=== PATIENT | female | born 1980 | race Caucasian/White ===

== ENCOUNTER 2017-09-06 05:37 | Inpatient (IN) ==
[2017-09-06] MEDS ORDERED: Ringers Solution, Lactated 1,000 ML ONE ×2 (06:03→08:52)
[2017-09-06] MEDS ORDERED: Naloxone 0.4 MG/ML INJ IVP PRN (06:13)
[2017-09-06] MEDS ORDERED: Metoclopramide 10 MG/2 ML VIAL IVP PRN ×2 (06:13→14:18)
[2017-09-06] MEDS ORDERED: Ondansetron 4 MG/2 ML VIAL IVP PRN ×2 (06:13→14:18)
[2017-09-06] MEDS ORDERED: Famotidine 20 MG/2 ML VIAL IVP PRN (06:13)
[2017-09-06] MEDS ORDERED: Ringers Solution, Lactated 1,000 ML IVC SCH (06:15)
[2017-09-06 06:30] LABS: Basophils # 0.1 K/mcL (0.0-0.2); Basophils % 0.5 %; Eosinophils # 0.2 K/mcL (0.0-0.6); Eosinophils % 1.9 %; Hematocrit 36.9 % (35.3-44.9); Hemoglobin 12.2 g/dL (11.5-15.4); Immature Granulocytes % 0.8 % (0-4); Lymphocytes # 1.4 K/mcL (0.6-4.6); Lymphocytes % 13.1 %; Mean Corpuscular HGB Conc 33.1 g/dL (31.6-35.5); Mean Corpuscular Hemoglobin 28.6 pg (28.0-33.3); Mean Corpuscular Volume 86.6 fL (83.0-100.0); Monocytes # 0.6 K/mcL (0.0-1.3); Monocytes % 5.7 %; Neutrophils # 8.5 K/mcL (1.6-8.9); Nucleated Red Blood Cells 0.2 /100 WBC (0); Platelet Count 268 K/mcL (140-400); Red Blood Count 4.26 M/mcL (3.82-4.97); Red Cell Distribution Width 13.3 % (11.5-14.5)
--- NOTE | 2017-09-06 06:35 | Anesthesia Evaluation PreOp ---
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 spoke with patient about this for 15min.), Past Anesthesia Alcohol Use: none Drug use: none Medications and Allergies [facility] Gummy Vitamins 1 PO DAILY 04/23/17 [History] 3 Allergy/AdvReac Type Severity Reaction Status Date / Time No Known Allergies Allergy Verified 04/23/17 18:18 Anesthesia Results - Labs 09/06/17 05:55 Anesthesia Exam - HEENT Pupil (Motor): Pupils equal Mallampati: III Teeth: Normal (upper front 2 has been repair.) Oral Opening: Greater than 3 - AUTO BODY REPAIRER LOC: Oriented AUTO BODY REPAIRER Motor: Normal RUE, Normal LUE, Normal RLE, Normal LLE, Normal Face AUTO BODY REPAIRER Sensory: Normal: RUE, LUE, RLE, LLE, Face - Cardiac Rhythm: Regular Murmur: None - Pulmonary Breath Sounds: bilateral Clear Respiratory Effort: Symmetrical Anesthesia Assess/Plan ASA Score: 2 Modified Jay Scale for Level of Consciousness: Cooperative, oriented, and tranquil Anesthetic Plan: General, Regional Monitoring Plan: Standard Monitors Recovery Plan: PACU
[2017-09-06 06:37] LABS: Amphetamine Screen,Urine Negative ng/mL (Cutoff=1000); Barbiturate Screen,Urine Negative ng/mL (Cutoff=200); Benzodiazepines Screen,Urine Negative ng/mL (Cutoff=200); Cannabinoid Screen,Urine Negative ng/mL (Cutoff = 50); Cocaine Screen,Urine Negative ng/mL (Cutoff= 300); Opiate Screen,Urine Negative ng/mL (Cutoff=300); Phencyclidine Screen,Urine Negative ng/mL (Cutoff=25)
[2017-09-06] MEDS ORDERED: *HR* OxyCODONE Immed Rel 5 MG TABLET PO PRN ×2 (06:39→09:17)
[2017-09-06] MEDS ORDERED: Ketorolac 30 MG/ML VIAL IVP PRN (06:39)
[2017-09-06] MEDS ORDERED: MORPHINE SUL Oral CONC 10 MG/0.5 ML ORAL.SYG SL PRN (06:39)
[2017-09-06] MEDS ORDERED: Acetaminophen IV 1,000 MG/100 ML INFUS..BTL IVPB ONE (06:39)
[2017-09-06] MEDS ORDERED: *HR* Labetalol 20 MG/4 ML SYRINGE IVP PRN (06:39)
[2017-09-06] MEDS ORDERED: *HR* Promethazine 25 MG/ML VIAL IVP PRN (06:39)
[2017-09-06] MEDS ORDERED: Morphine Sulfate/PF 5mg/10mL Vial ONE (07:17)
[2017-09-06] MEDS ORDERED: *HR* FentaNYL (PF) 100 MCG/2 ML VIAL ONE ×3 (07:17→09:11)
[2017-09-06] MEDS ORDERED: *HR* Oxytocin 10 UNIT/ML VIAL IM ONE ×2 (07:18→08:52)
[2017-09-06] MEDS ORDERED: cefOXitin 2,000 MG in 0.9 % Sodium Chloride Mini Bag 100 ML IVPB ONE (07:25)
[2017-09-06] MEDS ORDERED: MetroNIDAZOLE 500 MG/100 ML 500 MG/100 ML BAG IVPB ONE (07:25)
--- NOTE | 2017-09-06 07:35 | OB/GYN History & Physical ---
Date of Encounter: 09/06/17 Time of Encounter: 07:32 Assessment and Plan (1) Previous delivery affecting Current visit: Yes Status: Acute The patient has signed consent to proceed with a repeat (2) 39 weeks gestation of Current visit: Yes Status: Acute The patient has received care and a maternal- medicine consult during her (3) Advanced maternal age during in third trimester Current visit: Yes Status: Acute The patient has had a level II ultrasound and declined any invasive testing during (4) Metastatic melanoma Current visit: No Status: Acute There is a planned CT scan following delivery for further evaluation of the status of her cancer History of Present Illness Chief complaint: Repeat section HPI: Ms. Tran is a 37 year old female with LMP of 12/06/16 with EDC of currently at 39 weeks estimated gestational age who presents to labor and delivery for a repeat . The patient has had 3 previous C-sections. Her has been complicated by her obstetrical history, advanced maternal age, personal history of metastatic melanoma, excessive weight gain during and being positive for group B strep. Her blood type is A+, she is rubella immune and varicella immune. She reports an active fetus, denies any vaginal bleeding, loss of fluid or contractions. She is requesting a repeat and declines a tubal ligation. Past Med Surg Social Fam HX - Past Medical History Source: patient, old records reviewed Medical history: cancer Psychiatric history: no psych history - Past Surgical History Surgical History: , other (Malignant melanoma excision with axillary dissection, 2009, 2012 and 2014) - Social History Smoking Status: Former smoker Smokeless Tobacco Status: No Alcohol use: none Drug use: none - Family History Mother Adopted: No Living Status: Still Living Hx Family Cardiac Disorders: No Hx Family Respiratory Disorders: No Hx Family Cancer: No Hx Family GI Disorders: No Hx Family Genitourinary Disorders: No Hx Family Endocrine Disorder: No Hx Family Musculoskeletal Disorders: No Hx Family Neuromuscular Disorders: No Hx Family Neurologic Disorders: No Hx Family HEENT Disorders: No Hx Family Autoimmune Disorders: No Hx Family Reproductive Disorders: No Hx Family Psychosocial Disorders: No Hx Family Medical Disorders: No Obstetrical History - Pregnancies : 5 Para: 3 Term: 3 Ab's: 1 Livin Medications and Allergies [facility] Gummy Vitamins 1 PO DAILY 04/23/17 [History] 3 Allergy/AdvReac Type Severity Reaction Status Date / Time No Known Allergies Allergy Verified 04/23/17 18:18 Review of System OB All systems PM: reviewed and no additional remarkable complaints except as stated - Constitutional Constitutional ROS IM: fatigue, weight gain - Cardiovascular Cardiovascular: pedal edema Exam - Vital Signs Vital signs: Afebrile, vital signs stable - Constitutional Constitutional: well developed, well nourished, no acute distress, average body habitus - HEENT HEENT: Normocephaly, Mucus Membranes Moist - Neck Neck exam: supple, trachea midline - Lungs Respiratory exam: CTAB - Cardiovascular Cardiovascular exam: RRR - Abdomen Abdomen: Present: bowel sounds normal, gravid, non tender - Extremities Extremities exam: pedal edema, warm Deep Tendon Reflex Grade: 2+ Normal - Vulva Vulva: bilateral: normal - Vagina Vagina: Present: normal moisture - Anus/Rectum Anus/Rectum: Present: normal perianal skin Results Result Diagrams: 09/06/17 05:55 Abnormal lab results Nucleated RBCs/100 WBC 0.2 /100 WBC (0) H 09/06/17 05:55 All other labs normal. - VTE Documentation of Mechanical Device: Intermittent pneumatic compression device
--- NOTE | 2017-09-06 08:19 | Anesthesia Procedures ---
Date of Encounter: 09/06/17 Time of Encounter: 08:17 Procedures: Anesthesia - Epidural/Spinal Patient ID/Chart reviewed: Yes Patient examined: Yes OB Eval: Gestational age: 40 Consent Obtained: Yes Supplemental Oxygen: Nasal Cannula Supplemental Oxygen Rate (L/min): 3 Site Prep: Aseptic Technique, Sterile prep and drape, 0.5% Chlorhexidine/Alcohol Patient position: upright Local Anesthetic: Lidocaine 1% Amount of Local Anesthetic used: 5 Interspace Used: L2-L3 Loss of Resistance (HAMLET): No Blood: No CSF: Yes Paresthesia: No Spinal Needle Gauge: 22 Spinal Dose: marcaine 12 mg fentanyl 10 mcg morphine 0.25 Procedure: aseptic, attempt x2 w 25 ga, converted to 22ga, csf x 4 quads and clear, tolerated well, VSS Vitals + FHT's: 35/88 110 16 fht 134
[2017-09-06] MEDS ORDERED: Ondansetron 4 MG/2 ML VIAL ONE (08:47)
[2017-09-06] MEDS ORDERED: Ketorolac 30 MG/ML VIAL ONE (09:21)
--- NOTE | 2017-09-06 09:21 | OB/GYN Procedure Note ---
Section - Date of procedure: 09/06/17 Preop diagnosis: desires repeat Post-op diagnosis: same (Anterior omental adhesions, bladder adhesions) Procedure: section, repeat low transverse Surgeon: Dominique Reyes Estimated blood loss (cc): 400 Was there an assistant speech language pathologist present: Yes Vessel Crew Member: Giulia Kelly Toolroom Attendant: Facundo Stewart Anesthesia Type: Spinal section complications: none Disposition: L&D Recovery Room Specimens: Placenta, Cord segment - (s) Infant A Delivery Date: 09/06/17 Infant Delivery Time: 08:27 Presentation: vertex Position: MORA Route of delivery: other Gender: Male Viability: Viable Pounds: 8 Ounces: 4 Gram Weight: 3.735 kg at 1 minute: 8 at 5 minutes: 9 Placenta: spontaneous, uterine exploration Cord: 3 umbilical vessels - Narrative Narrative: The patient was taken to the operating room and given spinal anesthesia adequate for abdominal and pelvic surgery. She was prepped and draped in the usual sterile fashion. Timeout was completed. A Pfannenstiel skin incision was made above and below the previous scar and the cicatrix was excised and discarded. The subcutaneous tissue was sharply dissected down to the fascia. The fascia was incised in the midline and extended bilaterally with Rivera scissors.. 2 straight [place] clamps were placed on the inferior fascial edge and the fascia was bluntly and sharply dissected away from the rectus muscles. Peritoneum was bluntly entered. There were omental adhesions anteriorly which was lysed with a Bovie and hemostasis confirmed. The bladder was adherent midway up the uterus. This was lysed with Metzenbaum scissors in a sharp fashion. The bladder blade was placed to protect the bladder. Vesicouterine peritoneum was incised and reflected inferiorly, and the bladder blade was replaced to protect the bladder. A transverse incision was then made on the uterus which is extended in a U fashion with bandage scissors. The amnion was bluntly entered with an Allis clamp. Clear fluid was seen. This was followed by the vertex delivery of a viable and vigorous male weighing 8#4 oz with Apgars of 8 at 1 minute and 9 at 5 minutes. was placed on the maternal abdomen. The cord was clamped and cut after a delay. was handed to the nursery care team. The placenta was delivered spontaneous and intact. The uterine cavity was digitally palpated and wiped clean with a moist lap sponge. There were no placental remnants identified. A ring forcep was used to make sure the cervix was dilated and then this was discarded off the field. Clamps were placed on the uterine angles and the uterine incision was closed using 0 Vicryl suture in a running, locking fashion. A second imbricating layer completed the uterine closure with 0 Vicryl suture. The uterus was then examined and noted to be hemostatic. The pelvis was then irrigated with a copious amount of sterile water. Again, good hemostasis was identified. Tubes and ovaries were inspected and noted to be grossly normal. The peritoneal edges and rectus muscles were then examined and hemostasis achieved. The fascia was then closed using 0 PDS loop in a running nonlocking fashion. Subcutaneous tissue was irrigated with sterile water, good hemostasis was achieved. The skin was then closed using a 4-0 Monocryl in a running subcuticular fashion. A dressing was placed. Estimated blood loss was 400cc. The Moore was noted to be draining clear yellow urine at the end of the procedure. All sponge and instrument counts are correct at the end of the procedure. The patient was taken to the recovery room in stable condition.
[2017-09-06] MEDS ORDERED: *HR* Nalbuphine 20 MG/ML AMPUL ONE (11:04)
[2017-09-06] MEDS ORDERED: Oxytocin 20 units/ LR 1000 mL 20 UNIT/1,000 ML BAG IVC SCH (14:18)
[2017-09-06] MEDS ORDERED: Sennosides 8.6 MG TABLET PO PRN (14:18)
[2017-09-06] MEDS ORDERED: Acetaminophen 325 MG TABLET PO PRN (14:18)
[2017-09-06] MEDS ORDERED: Simethicone 80 MG TAB.CHEW PO PRN (14:18)
[2017-09-06] MEDS: Ibuprofen 600 MG TABLET PO SCH ×2 (16:50→23:06)
[2017-09-06] MEDS: *HR* OxyCODONE/APAP 5/325 TABLET PO PRN ×2 (18:38→22:57)
[2017-09-07] MEDS: *HR* OxyCODONE/APAP 5/325 TABLET PO PRN ×3 (05:27→18:19)
[2017-09-07] MEDS: Ibuprofen 600 MG TABLET PO SCH ×3 (05:27→18:18)
[2017-09-07 06:33] LABS: Basophils # 0.1 K/mcL (0.0-0.2); Basophils % 0.5 %; Eosinophils # 0.3 K/mcL (0.0-0.6); Eosinophils % 3.1 %; Hematocrit 32.9 % (35.3-44.9); Hemoglobin 10.8 g/dL (11.5-15.4); Immature Granulocytes % 0.5 % (0-4); Lymphocytes # 1.3 K/mcL (0.6-4.6); Lymphocytes % 12.6 %; Mean Corpuscular HGB Conc 32.8 g/dL (31.6-35.5); Mean Corpuscular Hemoglobin 28.6 pg (28.0-33.3); Mean Corpuscular Volume 87.3 fL (83.0-100.0); Mean Platelet Volume 9.9 fL (9.4-12.4); Monocytes # 0.6 K/mcL (0.0-1.3); Neutrophils # 8.1 K/mcL (1.6-8.9); Platelet Count 215 K/mcL (140-400); Red Blood Count 3.77 M/mcL (3.82-4.97); Red Cell Distribution Width 13.5 % (11.5-14.5); Segmented Neutrophils % 77.3 %
--- NOTE | 2017-09-07 08:13 | OB/GYN Progress Note ---
Date of Encounter: 09/07/17 Time of Encounter: 08:11 - Assessment and Plan (1) Status post repeat low transverse section Current Visit: Yes Status: Acute Will try adding 5mg po Q6 for breakthrough pain possible discharge home tomorrow Subjective - Subjective Principal diagnosis: Day 1 postop Interval history: Patient sitting up in bed crying. Patient reports pain is terrible without relief from current pain medication. Patient is passing gas and eating regular diet. Patient reports: appetite normal, voiding normally, pain poorly controlled, ambulating normally [place]: doing well, bottle feeding Objective - Vital Signs Latest vital signs: Vital Signs Temp Pulse Resp BP Pulse Ox 09/07/17 07:59 97.8 F 78 18 113/68 98 09/07/17 05:35 98 F 79 14 115/81 96 09/06/17 23:00 98.3 F 84 14 118/69 96 09/06/17 21:10 97.9 F 84 14 115/79 94 09/06/17 15:01 97.9 F 74 18 115/67 96 09/06/17 14:17 97.7 F 76 16 118/74 09/06/17 13:02 98.0 F 77 20 121/60 96 09/06/17 12:25 97.9 F 70 20 123/77 96 09/06/17 11:45 97.7 F 66 16 128/64 99 Intake and Output 09/06/17 09/07/17 09/07/17 23:59 07:59 15:59 Intake Total 1140 / 1140 800 / 800 Output Total 1550 / 1550 1100 / 1100 Balance -410 / -410 -300 / -300 Intake: Oral 1140 / 1140 800 / 800 Output: Catheter 1550 / 1550 1100 / 1100 Other: Meal chicken noodle soup and crackers Weight 112.4 kg Patient Weight 09/07/17 23:59 Weight 112.4 kg - Exam Lungs: bilateral: normal Extremities: Present: normal Abdomen: Present: normal appearance, soft Incision: Present: normal, dry, dressed (medipore) Uterus: Present: normal, firm Fundal Height: 2 (U/2) - Labs Labs: Laboratory Results - last 24 hr 09/07/17 06:05 WBC 10.4 RBC 3.77 L Hgb 10.8 L Hct 32.9 L MCV 87.3 MCH 28.6 MCHC 32.8 RDW 13.5 Plt Count 215 MPV 9.9 Immature Gran % 0.5 Seg Neutrophils % 77.3 Lymphocytes % 12.6 Monocytes % 6.0 Eosinophils % 3.1 Basophils % 0.5 Neutrophils # 8.1 Lymphocytes # 1.3 Monocytes # 0.6 Eosinophils # 0.3 Basophils # 0.1
[2017-09-07] MEDS: Prenatal Vit/FA 1 EACH TABLET PO SCH (08:29)
[2017-09-07] MEDS: *HR* OxyCODONE Immed Rel 5 MG TABLET PO PRN ×3 (08:29→21:43)
[2017-09-08] MEDS: *HR* OxyCODONE/APAP 5/325 TABLET PO PRN ×4 (00:53→20:02)
[2017-09-08] MEDS: Ibuprofen 600 MG TABLET PO SCH ×4 (00:53→20:03)
[2017-09-08] MEDS: Prenatal Vit/FA 1 EACH TABLET PO SCH (08:30)
[2017-09-08] MEDS: *HR* OxyCODONE Immed Rel 5 MG TABLET PO PRN ×3 (09:47→23:18)
--- NOTE | 2017-09-08 18:44 | OB/GYN Progress Note ---
Date of Encounter: 09/08/17 Time of Encounter: 18:30 - Assessment and Plan (1) Status post repeat low transverse section Current Visit: Yes Status: Acute s/p repeat low transverse day #2 Patient is doing well. Continue with current pain management. Plan for discharge tomorrow. Subjective - Subjective Principal diagnosis: s/p Interval history: Patient is sitting in bed comfortably. Reports pain is greatly improved since yesterday. She is voiding without difficulty, passing gas, and had a normal bowel movement today. She also reports that she is tolerating PO intake well. No further acute complaints. Patient reports: appetite normal, voiding normally, pain well controlled, ambulating normally : doing well, bottle feeding Objective - Vital Signs Latest vital signs: Vital Signs Temp Pulse Resp BP Pulse Ox 09/08/17 07:30 97.8 F 78 16 113/75 95 09/07/17 19:20 97.8 F 80 16 122/76 97 Intake and Output 09/08/17 09/08/17 09/08/17 07:59 15:59 23:59 Intake Total 1240 / 1240 Balance 1240 / 1240 Intake: Oral 1240 / 1240 Other: Meal Breakfast Percent of Meal Consumed 100% Weight 112.355 kg Patient Weight 09/08/17 23:59 Weight 112.355 kg - Exam Lungs: bilateral: normal Chest: Normal S1, Normal S2 Extremities: Present: normal, edema (2+ bilaterally ) Abdomen: Present: normal appearance, soft Incision: Present: normal, dry, intact Uterus: Present: normal, firm Fundal Height: 1 ((U/1))
[2017-09-09] MEDS: *HR* OxyCODONE/APAP 5/325 TABLET PO PRN ×2 (04:52→12:23)
[2017-09-09] MEDS: Ibuprofen 600 MG TABLET PO SCH (04:52)
--- NOTE | 2017-09-09 08:26 | Discharge Summary ---
Date of Encounter: 09/09/17 Time of Encounter: 08:23 - Discharge Diagnosis (1) Status post repeat low transverse section Priority: Primary Status: Acute Comments: Continue routine care discharge home today follow up with Dr. Neri in 2 weeks for incision check - Discharge Medications Prescriptions: OxyCODONE/APAP 5/325 [Percocet 5/325 MG] 1 each PO Q4HR PRN 5 Days #30 tablet PRN Reason: Moderate pain 4-6 Docusate [Colace] 100 mg PO BID #30 capsule Ibuprofen [Motrin] 600 mg PO Q6H #60 tablet Home Medications: [facility] Gummy Vitamins 1 PO DAILY 04/23/17 [History] Docusate [Colace] 100 mg PO BID #30 capsule 09/09/17 [Rx] Ibuprofen [Motrin] 600 mg PO Q6H #60 tablet 09/09/17 [Rx] OxyCODONE/APAP 5/325 [Percocet 5/325 MG] 1 each PO Q4HR PRN 5 Days #30 tablet [Rx] Vit/FA 1 each PO DAILY tablet 09/09/17 [Rx] Allergies/Adverse Reactions: 3 Allergy/AdvReac Type Severity Reaction Status Date / Time No Known Allergies Allergy Verified 04/23/17 18:18 Data Procedures and tests throughout hospitalization: Laboratory Tests 09/06/17 09/06/17 09/07/17 05:55 05:55 06:05 WBC 10.9 10.4 RBC 4.26 3.77 L Hgb 12.2 10.8 L Hct 36.9 32.9 L MCV 86.6 87.3 MCH 28.6 28.6 MCHC 33.1 32.8 RDW 13.3 13.5 Plt Count 268 215 MPV 10.0 9.9 Immature Gran % 0.8 0.5 Seg Neutrophils % 78.0 77.3 Lymphocytes % 13.1 12.6 Monocytes % 5.7 6.0 Eosinophils % 1.9 3.1 Basophils % 0.5 0.5 Neutrophils # 8.5 8.1 Lymphocytes # 1.4 1.3 Monocytes # 0.6 0.6 Eosinophils # 0.2 0.3 Basophils # 0.1 0.1 Nucleated RBCs/100 WBC 0.2 H Urine Opiates Screen Negative Ur Barbiturates Screen Negative Ur Phencyclidine Scrn Negative Ur Amphetamines Screen Negative U Benzodiazepines Scrn Negative Urine Cocaine Screen Negative U Marijuana (THC) Screen Negative Date of admission: 09/06/17 05:37 Primary care physician: Saúl Sanabria MD Discharging clinician: Yamila Coulter Anticipated date of discharge: 09/09/17 - Patient Status Disposition: Home, Self-Care Condition: Good Functional capacity at discharge: independent ambulation - Discharge Instructions Follow Up With: Saúl Sanabria MD [Primary Care Provider] - Wagner Neri DO [Partnered Physician] - Hospital Course Delivery: section Episiotomy: none Laceration: none complications: none Discharge diagnosis: IUP at term delivered baby: male (bottle feeding) Hospital course: [facility] report reviewed by TRISTON Patel Time Attestation: Total time spent providing and/or coordinating discharge services: Time Spent: Less than 30 minutes - VTE Documentation of Mechanical Device: Intermittent pneumatic compression device Exam - Constitutional Vitals: Temp Pulse Resp BP Pulse Ox 97.7 F 87 16 116/72 97 09/08/17 21:55 09/08/17 21:55 09/08/17 21:55 09/08/17 21:55 09/08/17 21:55 General appearance IM: A&O X 3, pleasant, answers questions appropriately - Respiratory Respiratory exam: Present: CTAB - Cardiovascular Cardiovascular exam IM: Present: RRR, +S1, +S2 - GI/Abdominal GI/Abdominal exam IM: normal bowel sounds Incision: normal, dry, intact, other (steri strips) - Uterine Tone: Firm Uterus Position: 2 Fingers Below Umbilicus, Midline - Extremities Exam Extremities exam IM: Present: full ROM, normal capillary refill, normal inspection - Neurological Exam Neurological exam: alert, oriented X3, reflexes normal
[2017-09-09] MEDS: *HR* OxyCODONE Immed Rel 5 MG TABLET PO PRN (08:48)
[2017-09-09] MEDS: Prenatal Vit/FA 1 EACH TABLET PO SCH (08:48)
[2017-09-09 09:42] VITALS: BP 126/82
== END 2017-09-09 12:15 | disposition home or self-care (01) | DRG 540 ==
LOC: 1NENULAB 05:37 → 1NENUOBS 11:54
PROVIDERS: ADMIT Obstetrics & Gynecology; ATTEND Obstetrics & Gynecology